=== PATIENT | female | born 1980 | race Two or more races ===

== ENCOUNTER 2024-08-09 19:28 | Emergency (ER) | payer MEDICAID, SELFPAY ==
[2024-08-09 19:29] VITALS: BMI 29.2
--- NOTE | 2024-08-09 19:39 | EDNOTE_ITS ---
ED Abdominal Pain RME/HPI General Chief Complaint: Abdominal Pain Stated complaint: RIGHT ABD PAIN Time seen by provider: 08/09/24 19:33 Arrival date/time: 08/09/24 19:28 Source: patient, RN notes reviewed and old records reviewed Mode of arrival: ambulatory Limitations: no limitations RME / HPI RME / HPI narrative: 43yof presents to ED for RLQ pain radiating to right flank that initiated 1 hour prior to ED arrival. No fever, nausea/vomiting, diarrhea, dysuria or hematuria reported. 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 Previous Rx's ?Medication ?Instructions ?Recorded acetaminophen 500 mg tablet 500 mg PO Q6H PRN pain #30 tabs 08/09/24 (Tylenol Extra Strength) dicyclomine 20 mg tablet 20 mg PO Q6HR PRN abdominal pain 08/09/24 #30 tabs ibuprofen 600 mg tablet 600 mg PO Q6H PRN pain #20 t abs 08/09/24 Allergies Allergy/AdvReac Type Severity Reaction Status Date / Time No Known Allergies Allergy Verified 08/09/24 19:29 Review of Systems Review of Systems Systems Reviewed: All systems reviewed, normal except as documented Constitutional Constitutional: Denies chills and Denies fever(s) Gastrointestinal Gastrointestinal: Reports abdominal pain, Denies loose stools, Denies nausea and Denies vomiting Genitourinary Genitourinary: Denies dysuria, Reports flank pain and Denies hematuria Past Medical History Surgical History OTHER SURGICAL HX: Denies past surgical history Social History SMOKING STATUS: Former smoker SUBSTANCE USE: does not use ALCOHOL: Current (Social) Past Medical History Comments PMH COMMENT: Denies past medical history ED Exam General Limitations: Present no limitations General appearance: Present alert, in no apparent distress and other (Appears uncomfortable 2/2 pain) Head Head exam: Present atraumatic and normocephalic Eye Eye exam: Present normal appearance, PERRL and EOMI ENT ENT exam: Present normal exam and mucous membranes moist Neck Neck exam: Present normal inspection and full ROM Chest Chest inspection: Present normal inspection and symmetric chest wall rise Respiratory Respiratory exam: Present normal lung sounds bilaterally; Absent respiratory distress Cardiovascular Cardiovascular exam: Present regular rate and normal rhythm Abdominal Exam Abdominal exam: Present soft and tenderness (RLQ); Absent distention, guarding or rebound Extremities Exam Extremities exam: Present normal inspection and full ROM Back Exam Back exam: Absent CVA tenderness (R) or CVA tenderness (L) Neurological Exam Neurological exam: Present alert and oriented X3 Psychiatric Psychiatric exam: Present normal affect and normal mood Skin Skin exam: Present warm, dry, intact and normal color Course Quality Measures none Orders Category Date Time Status CT abdomen pelvis wo con Stat Exams 08/09/24 19:41 Completed CBC Stat Lab 08/09/24 20:13 Completed CMP [Comprehensive Metabolic Panel] Stat Lab 08/09/24 20:13 Completed HCG,Qualitative Serum Stat Lab 08/09/24 20:13 Completed Lipase Stat Lab 08/09/24 20:13 Completed UA [Urinalysis] Stat Lab 08/09/24 21:25 Completed HYDROcodone*/APAP 7.5/325 [[place] 7.5/325] Med 08/09/24 19:41 Discontinued 1 tab PO X1 ONE Ketorolac Inj [Toradol Inj] Med 08/09/24 19:41 Discontinued 30 mg IM X1 ONE Ondansetron Odt [Zofran Odt] Med 08/09/24 19:41 Discontinued 4 mg PO X1 ONE Vital Signs Vital signs: Vital Signs Temperature 98.4 F 08/09/24 19:42 Pulse Rate 78 08/09/24 19:42 Respiratory Rate 17 08/09/24 19:42 Blood Pressure 128/85 H 08/09/24 19:42 Pulse Oximetry (%) 97 08/09/24 19:42 Oxygen Delivery Method Room Air 08/09/24 19:42 Abdominal Pain MDM MDM Narrative MDM Narrative:: 43yof presents to ED for RLQ pain radiating to right flank that initiated 1 hour prior to ED arrival. No fever, nausea/vomiting, diarrhea, dysuria or hematuria reported. 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 Symptoms improved after medications administered. ED workup reassuring. Encouraged general surgery follow up for gallstones. Enlarged uterus on CT, patient reports hx of fibroids. Recommended rest, fluids, symptomatic treatment prn. Stable for dc, RTED precautions given. Patient data External records reviewed:: None (No prior visits) Clinical information provided by:: patient Social determinants that could affect healthcare access:: none Patient has the following chronic illnesses:: none How is presenting disease/condition affected by chronic disease/condition?: no chronic disease Evaluation data The following diagnostics were reviewed and interpreted by me:: lab results and radiology exam(s) Lab and/or radiology exams considered but not ordered:: none Interpretation Summary: No leukocytosis LFTs and lipase wnl UA -leuks, -nitrites CT abd/pelvis: IMPRESSION: Cholelithiasis, negative for cholecystitis 4 mm nonobstructing upper pole left renal calculus Markedly enlarged uterus, consider pelvic sonography follow-up Dictated By: Geovany Petit MD Medications / Prescriptions Medications or Prescriptions considered but not ordered:: no antibiotics recommended at this time Medication administrations:: Medication Administration History Discontinued Medications Hydrocodone Bitart/Acetaminophen (Hydrocodone/[place] 7.5/325 Tablet) 1 tab PO X1 ONE Stop: 08/09/24 19:42 Last Admin: 08/09/24 22:18 Dose: Not Given Documented By: Non-Admin Reason: Patient Refused Ketorolac Tromethamine (Ketorolac Inj 60 Mg/2 Ml Vial) 30 mg IM X1 ONE Stop: 08/09/24 19:42 Last Admin: 08/09/24 19:58 Dose: 30 mg Documented By: Ondansetron HCl (Ondansetron Odt 4 Mg Tabrap) 4 mg PO X1 ONE; Protocol Stop: 08/09/24 19:42 Last Admin: 08/09/24 19:59 Dose: 4 mg Documented By: Above medications administered in ED Consultations Consultation(s) initiated? (list below): No Diagnosis Differential diagnosis abdominal pain: abdominal pain, acute appendicitis, calculus of kidney, gastroenteritis, pancreatitis and other (UTI, pyelo, ovarian cyst) Most likely diagnosis given after review of the tests above:: cholelithiasis, fibroid Admission Indicated Admission indicated?: not indicated Admission Request Was there a request for admission?: No Disposition Plan Disposition Plan: Discharge Discharge Attestation Discharge Attestation: The patient and all family members were given an opportunity to ask questions and understood the discharge instructions. Discharge instructions specifically effects, indications for sooner follow up or return to the emergency department, and the expected course of current diagnosis. Patient condition: Stable Discharge Plan Plan Patient Disposition: HOME (Self Care) Patient condition on transfer: Stable Prescriptions/Referrals Prescriptions/Med Rec: New ibuprofen 600 mg tablet 600 mg PO Q6H PRN (Reason: pain) Qty: 20 0RF acetaminophen [Tylenol Extra Strength] 500 mg tablet 500 mg PO Q6H PRN (Reason: pain) Qty: 30 0RF dicyclomine 20 mg tablet 20 mg PO Q6HR PRN (Reason: abdominal pain) Qty: 30 0RF Referrals: Steven Singleton MD [Primary Care Provider] - In 1 week Problem List Clinical Impression: Abdominal pain, Cholelithiasis, Enlarged uterus Patient/Caregiver Discharge Instructions Education Materials: What Are Gallstones Additional Instructions: Your CT scan showed an enlarged uterus. Follow up with commercial hvac service technician as needed, they may want to order a pelvic ultrasound. Print Language: Palestinian Stand Alone Forms: Geraldine Award Info., Work/School Release, Patient Portal Info Letter PA/ASSEMBLER DIELECTRIC HEATER Supervising Physician PA/ASSEMBLER DIELECTRIC HEATER Supervising Physician: Kamini
--- NOTE | 2024-08-09 19:41 | XR_ITS ---
Examination: CT abdomen and pelvis without contrast. Coronal 3-D reconstructions. Sagittal 2-D reconstructions. Date and time of exam:August 09, 2024 1033 hours INDICATIONS: Right lower abdominal pain and right flank pain today CTDI: vol (mGy): 8.17 DLP: (mGycm): 454 Technique: Axial images of the abdomen have been obtained, 3 mm slice thickness Intravenous contrast material has not been administered. Low dose protocols were performed. One or more of the following dose reduction techniques were used; automated exposure control, adjustment of the mA and/or KV according to patient size, use of iterative reconstruction technique. Findings: No focal liver or splenic lesions Cholelithiasis No pancreatic or adrenal mass 4 mm upper pole left renal calculus No hydronephrosis or ureteral calculi. Normal appendix Anteverted and markedly enlarged uterus No bladder mass IMPRESSION: Cholelithiasis, negative for cholecystitis 4 mm nonobstructing upper pole left renal calculus Markedly enlarged uterus, consider pelvic sonography follow-up
[2024-08-09 19:42] VITALS: BP 128/85; PULSE 78; RESP 17; TEMP 36.9; O2SAT 97
[2024-08-09] MEDS: KETOROLAC INJ 60 MG/2 ML VIAL 30 MG IM (19:58)
[2024-08-09] MEDS: ONDANSETRON ODT 4 MG TABRAP PO (19:59)
[2024-08-09 20:34] LABS: Basophils % (Auto) 0 % (0-2.5); Eosinophils # (Auto) 0.1 Thou/mm3 (0.0-0.5); Eosinophils % (Auto) 1 % (0-10); Hematocrit 38.3 % (36.0-46.0); Hemoglobin 13.2 g/dL (12.0-16.0); Immature Granulocytes % (Auto) 0 % (0-0); Immature Granulocytes Auto 0.01 Thou/mm3 (0.00-0.00); Lymphocytes # (Auto) 1.7 Thou/mm3 (1.0-4.8); Lymphocytes % (Auto) 20 % (10-50); Mean Corpuscular HGB Conc 34.5 g/dl (31.0-37.0); Mean Corpuscular Hemoglobin 27.5 pg (25.0-35.0); Mean Corpuscular Volume 80 fL (80-100); Monocytes # (Auto) 0.7 Thou/mm3 (0.0-0.8); Monocytes % (Auto) 9 % (0-12); Neutrophils # (Auto) 5.9 Thou/mm3 (1.8-7.7); Neutrophils % (Auto) 70 % (37-80); Nucleated Red Blood Cell % 0 /100 WBC (0); Platelet Count 285 Thou/mm3 (140-440); RDW Standard Deviation 36.3 fL (36.4-46.3); White Blood Count 8.4 Thou/mm3 (3.6-11.0)
[2024-08-09 20:55] LABS: Alanine Aminotransferase 18 U/L (10-49); Albumin, Serum 4.8 gm/dL (3.5-5.0); Albumin/Globulin Ratio 2.3 (1.2-2.2); Alkaline Phosphatase 85 U/L (46-116); Anion Gap 8 (7-16); Aspartate Amino Transferase 23 U/L (0-34); BUN/Creatinine Ratio 14 Ratio (12-20); Bilirubin,Total 0.5 mg/dL (0.3-1.2); Blood Urea Nitrogen 13 mg/dL (9-23); Calcium 10.4 mg/dL (8.3-10.6); Calcium (Corrected) 10.4 mg/dL (8.5-10.1); Chloride 104 mMol/L (98-107); Creatinine (Component) 0.9 mg/dL (0.6-1.3); Estimated Creatinine Clearance 79.3 mL/min (>60); Globulin 2.1 gm/dL (2.3-3.5); Glucose 101 mg/dL (74-106); Lipase 30 U/L (12-53); Osmolality,Calculated 275 (275-295); Potassium 4.6 mMol/L (3.4-5.1); Sodium 138 mMol/L (136-145); Total Protein 6.9 gm/dL (5.7-8.2); eGFR > 60 See Note
[2024-08-09 21:05] LABS: HCG,Qualitative Serum Negative
[2024-08-09 21:34] LABS: Collection Type, Urine Clean Catch
[2024-08-09 21:44] LABS: Bacteria,Urine Rare; Bilirubin,Urine Negative (Negative); Blood,Urine Negative (Negative); Clarity,Urine Clear (Clear/Hazy); Color,Urine Yellow (Lt Yel-Yel); Glucose, Urine Negative (Negative); Ketones,Urine 1+ (Negative); Leukocyte Esterase,Urine Negative (Negative); Nitrite,Urine Negative (Negative); Protein,Urine Trace (Neg - Trace); RBC,Urine 3 /hpf (0-3); Specific Gravity,Urine 1.032 (1.001-1.035); Squamous Epithelial Cell,Urine 1 /hpf (0-5); Urobilinogen,Urine Negative mg/dL (0.0-1.0); WBC,Urine 2 /hpf (0-5)
== END 2024-08-09 23:50 | disposition home or self-care (01) ==
PROVIDERS: Physician Assistant; Emergency Provider Emergency Medicine; PCP Family Medicine
DX: K80.20 Calculus of gallbladder without cholecystitis without obstruction (principal); N85.2 Hypertrophy of uterus; N20.0 Calculus of kidney
CPT/HCPCS: 36415; 74176; 80053; 81001; 83690; 84703; 85025; 96372; 99284; J1885; Q0162